=== PATIENT | female | born 1980 | race Asian ===

== ENCOUNTER 2019-07-27 03:16 | Emergency (ER) | payer OTHER ==
[2019-07-27 03:37] LABS: BASOPHILS % (AUTO) 0.5 %; EOSINOPHILS # (AUTO) 0.1 10^3/uL (0.0-0.7); EOSINOPHILS % (AUTO) 1.1 %; HGB - HEMOGLOBIN 13.1 g/dL (12.0-16.0); LYMPHOCYTES # (AUTO) 2.5 10^3/uL (1.5-3.5); LYMPHOCYTES % (AUTO) 41.4 %; MEAN CORPUSCULAR HEMOGLOBIN 29.5 pg (27.0-31.0); MEAN CORPUSCULAR HGB CONC 33.2 g/dL (32.0-36.0); MEAN CORPUSCULAR VOLUME 88.7 fL (81.0-99.0); MEAN PLATELET VOLUME 10.1 fL (7.9-10.8); MONOCYTES # (AUTO) 0.4 10^3/uL (0.0-1.0); MONOCYTES % (AUTO) 7.1 %; NEUTROPHILS % (AUTO) 49.6 %; PLT - PLATELET COUNT 267 10^3/uL (130-450); RED BLOOD COUNT 4.44 10^6/uL (4.20-5.40); RED CELL DISTRIBUTION WIDTH 12.6 % (12.0-15.0); WHITE BLOOD COUNT 6.1 x10^3/uL (4.8-10.8)
[2019-07-27 03:50] LABS: ALBUMIN 4.5 g/dL (3.2-5.5); ALBUMIN/GLOBULIN RATIO 1.5 (1.0-2.2); BILIRUBIN,TOTAL 0.5 mg/dL (0.2-1.0); CREATININE 0.7 mg/dL (0.4-1.0); TOTAL PROTEIN 7.6 g/dL (6.7-8.2)
--- NOTE | 2019-07-27 04:04 | XRAY Report ---
Reason: chest pain Procedure Date: 07/27/2019 Accession Number: [id number] / [id number] Procedure: XR - Chest 2 View X-Ray CPT Code: 89408 Final Report FULL RESULT: EXAM: CHEST RADIOGRAPHY EXAM DATE: 07/27/2019 03:50 AM. CLINICAL HISTORY: Chest pain. COMPARISON: None. TECHNIQUE: 2 views. FINDINGS: The mediastinal and cardiac silhouettes are normal. The lungs are clear. No pleural effusion or pneumothorax is seen. The osseous structures are intact. IMPRESSION: Clear lungs. RADIA
--- NOTE | 2019-07-27 04:10 | ED Physician Documentation ---
PD HPI CHEST PAIN - Stated complaint Stated Complaint: CHEST TIGHT/RHR - Chief complaint Chief Complaint: Cardiac - History obtained from History obtained from: Patient - Additional information Additional information: Patient comes emergency department complaining of left scapular pain radiating through to her left chest that started approximately 2 hours ago. Patient states she was just getting ready to go to bed when she noticed a sharp pain in her scapula.She states that it shot through to her chest and made her catch her breath. She also felt a numb tingly feeling going down her left arm and states her palm was sweaty. She woke her because she was concerned about it. Patient states it felt as though her heart was pounding at that time. Patient denies any associated nausea or vomiting. She states that she felt somewhat anxious, but otherwise not short of breath. She states that she does not have any lightheadedness or dizziness at the time, either. Patient states that does not seem there is anything that makes the pain better or worse. She has never had this pain before. Patient states she is otherwise healthy. She has no history of diabetes or hypertension. She is not a smoker. No family history of coronary artery disease at a young age. No family history of DVT. Patient herself does not have any History of DVT or coronary artery disease. She states her legs have not been swelling recently. No recent immobilization. She denies any cough or fever. She states that her pain is a little better now than it initially was. No other complaints at this time. Review of Systems Ten Systems: 10 systems reviewed and negative Constitutional: reports: Reviewed and negative Eyes: reports: Reviewed and negative Ears: reports: Reviewed and negative Nose: reports: Reviewed and negative Throat: reports: Reviewed and negative Cardiac: reports: Chest pain / pressure, Palpitations Respiratory: reports: Reviewed and negative GI: reports: Reviewed and negative : reports: Reviewed and negative Skin: reports: Reviewed and negative Musculoskeletal: reports: Reviewed and negative Neurologic: reports: Numbness Psychiatric: reports: Reviewed and negative Endocrine: reports: Reviewed and negative Immunocompromised: reports: Reviewed and negative PD PAST MEDICAL HISTORY - Past Medical History Past Medical History: No - Past Surgical History 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 - Present Medications Home Medications: Ambulatory Orders Medication Instructions Recorded Confirmed Multivitamin [Multiple Vitamins] 1 tab PO DAILY 07/27/19 07/27/19 - Allergies Allergies/Adverse Reactions: Allergies Allergy/AdvReac Type Severity Reaction Status Date / Time No Known Drug Allergies Allergy Verified 07/27/19 03:26 - Social History Does the pt smoke?: No Smoking Status: Never smoker Does the pt drink ETOH?: No Does the pt have substance abuse?: No - Immunizations Immunizations are current?: Yes - POLST Patient has POLST: No PD ED PE NORMAL - Vitals Vital signs reviewed: Yes - General General: Alert and oriented X 3, No acute distress, Well developed/nourished - HEENT HEENT: Atraumatic, PERRL, EOMI, Moist mucous membranes - Neck Neck: Supple, no meningeal sign - Cardiac Cardiac: RRR, No murmur - Respiratory Respiratory: No respiratory distress, Clear bilaterally - Abdomen Abdomen: Soft, Non tender, Non distended - Back Back: Other (Patient has mild tenderness palpation of the intrascapular musculature, especially on the left. This does not reproduce the pain she is having.) - Derm Derm: Normal color, Warm and dry, No rash - Extremities Extremities: No deformity, No tenderness to palpate, Normal ROM s pain, No edema, No calf tenderness / cord - Neuro Neuro: Alert and oriented X 3, chief digital officer 2-12 intact, No motor deficit, No sensory deficit, Normal speech - Psych Psych: Normal mood, Normal affect Results - Vitals Vitals: Vital Signs - 24 hr 07/27/19 07/27/19 07/27/19 03:20 03:47 04:20 Temperature 36.9 C Heart Rate 74 65 58 L Respiratory 20 19 18 Rate Blood Pressure 143/96 H 131/106 H 112/95 H Blood Pressure 134/92 H [Left] Blood Pressure 143/96 H [Right] O2 Saturation 100 100 98 07/27/19 05:30 Temperature 36.7 C Heart Rate 69 Respiratory 18 Rate Blood Pressure 127/93 H Blood Pressure [Left] Blood Pressure [Right] O2 Saturation 98 Oxygen O2 Source Room air - EKG (time done) 0330 Rate: Rate (enter#) (66) Rhythm: NSR [place]: Normal Intervals: Normal OK QRS: Normal Ischemia: Normal ST segments Compare to prior EKG: Unchanged from prior EKG Computer interpretation: Agree with computer - Labs Labs: Laboratory Tests 07/27/19 07/27/19 07/27/19 03:30 03:30 03:30 WBC 6.1 RBC 4.44 Hgb 13.1 Hct 39.4 MCV 88.7 MCH 29.5 MCHC 33.2 RDW 12.6 Plt Count 267 MPV 10.1 Neut # (Auto) 3.0 Lymph # (Auto) 2.5 Redwood # (Auto) 0.4 Eos # (Auto) 0.1 Baso # (Auto) 0.0 Absolute Nucleated RBC 0.00 Nucleated RBC % 0.0 D-Dimer Sodium 137 Potassium 3.5 Chloride 106 Carbon Dioxide 23 Anion Gap 8.0 BUN 14 Creatinine 0.7 Estimated GFR (MDRD) 94 Glucose 107 H Calcium 9.0 Total Bilirubin 0.5 AST 23 ALT 15 Alkaline Phosphatase 46 Troponin I High Sens 2.6 Total Protein 7.6 Albumin 4.5 Globulin 3.1 Albumin/Globulin Ratio 1.5 Lipase 28 07/27/19 03:30 WBC RBC Hgb Hct MCV MCH MCHC RDW Plt Count MPV Neut # (Auto) Lymph # (Auto) Redwood # (Auto) Eos # (Auto) Baso # (Auto) Absolute Nucleated RBC Nucleated RBC % D-Dimer < 200.0 L Sodium Potassium Chloride Carbon Dioxide Anion Gap BUN Creatinine Estimated GFR (MDRD) Glucose Calcium Total Bilirubin AST ALT Alkaline Phosphatase Troponin I High Sens Total Protein Albumin Globulin Albumin/Globulin Ratio Lipase - Rads (name of study) chest xray Radiology: Final report received, EMP read indepedently, See rad report PD MEDICAL DECISION MAKING - ED course Complexity details: reviewed results, re-evaluated patient, considered differential, d/w patient, d/w family ED course: Patient was worked up for her chest pain with labs, EKG, and chest x-ray, all which were unremarkable.Her heart rate was normal in the emergency department, as was her rhythm. Her diastolic blood pressure was slightly elevated. Departure - Departure Disposition: 01 Home, Self Care Clinical Impression: Chest pain Condition: Good Instructions: ED Chest Pain NonCardiac Comments: Your labs, EKG, and chest x-ray all look very good. There is no evidence of a heart attack, blood clot, aneurysm, pneumothorax, pneumonia, or any other emergent cause of your chest pain. The pain may be due to a pinched nerve or muscle spasm throughout the muscles that control your shoulder, both in front and back. This could cause both the pain in the back/Shoulder blade that you have been feeling, as well as in the front, and could also cause the numbness/ti ngling going down your left arm.No emergent cause of the pain is been found. Additionally, you were extremely low risk for heart attack andDo not have any identifiable risk factors for blood clot, either. You may take ibuprofen and Tylenol, as needed for the pain. Please follow-up with your primary care physician to have your blood pressure rechecked in a less stressful setting. Discharge Date/Time: 07/27/19 05:35
[2019-07-27] MEDS ORDERED: KETOROLAC 30 MG/ML VIAL IVP STA (04:14)
[2019-07-27 05:35] VITALS: BP 127/93
== END 2019-07-27 05:35 | disposition home or self-care (01) ==
LOC: ED 03:16
DX: R07.9 Chest pain, unspecified (principal); M25.512 Pain in left shoulder; R03.0 Elevated blood-pressure reading, without diagnosis of hypertension
CPT/HCPCS: 36415; 71046; 80053; 83690; 84484; 85025; 85379; 93005; 96374; 99284

== ENCOUNTER 2021-06-07 07:13 | Emergency (ER) | payer OTHER ==
[2021-06-07 07:22] VITALS: BP 142/91
[2021-06-07] MEDS ORDERED: DEXAMETHASONE 10 MG/ML VIAL PO STA (08:14)
[2021-06-07] MEDS ORDERED: CHERRY SYRUP 10 ML UDC PO ONE (08:14)
--- NOTE | 2021-06-07 08:16 | ED Physician Documentation ---
PD HPI HEADACHE - Stated complaint Stated Complaint: [place] HEAD PX/LUMPS - Chief complaint Chief Complaint: Heent - History obtained from History obtained from: Patient - History of Present Illness Timing - onset: How many days ago (3) Timing - onset during: Rest Timing - duration: Days (3) Timing - details: Gradual onset, Still present Location: Front, Right Quality: Throbbing, Stabbing Associated symptoms: No: Fever, Stiff neck, Nausea, Vomiting, Weakness, Numbness, Syncope, Seizure, Eye pain, Vision changes Improved by: Rest Contributing factors: No: Anticoagulated Similar symptoms before: Has not had sx before Recently seen: Not recently seen - Additional information Additional information: Previously well 40-year-old female has developed a headache on the right side of her head she has some redness with swelling that involves the right side of her scalp. She is having some intense stabbing pains periodically. She does have some stress and that her 20-year-old son is now leaving for college. 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 - Present Medications Home Medications: Ambulatory Orders Medication Instructions Recorded Confirmed Multivitamin [Multiple Vitamins] 1 tab PO DAILY 07/27/19 07/27/19 Valacyclovir HCl [Valtrex] 1,000 mg PO TID #21 tablet 06/07/21 - Allergies Allergies/Adverse Reactions: Allergies Allergy/AdvReac Type Severity Reaction Status Date / Time No Known Drug Allergies Allergy Verified 06/07/21 07:24 - Social History Does the pt smoke?: No Smoking Status: Never smoker Does the pt drink ETOH?: No Does the pt have substance abuse?: No - Immunizations Immunizations are current?: Yes - POLST Patient has POLST: No PD ED PE NORMAL - Vitals Vital signs reviewed: Yes (Hypertensive) - General General: Alert and oriented X 3, Well developed/nourished, Other (Obvious swelling to the right periorbital tissues with erythematous plaques consistent with shingles) - HEENT HEENT: PERRL, EOMI - Neck Neck: Supple, no meningeal sign, No bony TTP - Cardiac Cardiac: RRR, No murmur - Respiratory Respiratory: No respiratory distress, Clear bilaterally - Abdomen Abdomen: Soft, Non tender - Back Back: No CVA TTP, No spinal TTP - Derm Derm: Normal color, Warm and dry, Other (There is a rash to the scalp and right side of the face terminating at the upper eyelid. Consistent with a nerve distribution and shingles) - Extremities Extremities: No deformity, No edema - Neuro Neuro: Alert and oriented X 3, chief enterprise architect 2-12 intact, No motor deficit, No sensory deficit, Normal speech Eye Opening: Spontaneous Motor: Obeys Commands Verbal: Oriented GCS Score: 15 - Psych Psych: Normal mood, Normal affect Results - Vitals Vitals: Vital Signs - 24 hr 06/07/21 07:18 Temperature 36.4 C L Heart Rate 81 Respiratory 15 Rate Blood Pressure 142/91 H O2 Saturation 99 Oxygen O2 Source Room air PD MEDICAL DECISION MAKING - ED course Complexity details: considered differential, d/w patient ED course: 40-year-old female with shingles has significant amount of swelling associated with this she does appear to be in pain we will start her on valacyclovir and I have given her a single dose of dexamethasone. Departure - Departure Disposition: 01 Home, Self Care Clinical Impression: Shingles Qualifiers: Herpes zoster complications: without complications Qualified Code(s): B02.9 - Zoster without complications Condition: Stable Instructions: ED Shingles Follow-Up: [facility] [Provider Group] Prescriptions: Valacyclovir HCl [Valtrex] 1,000 mg PO TID #21 tablet Comments: Alisha, Today it looks like you have shingles on your forehead. This is reactivation of the chickenpox virus and will likely cause some nerve pain. The recommendation is to take the valacyclovir 3 times a day for 1 week. Expectation is that you will have a reduction in your symptoms day by day and likely have resolution by the end of the week.Medication has been E scribed to [facility] in [place]
== END 2021-06-07 08:36 | disposition home or self-care (01) ==
LOC: ED 07:13
DX: B02.9 Zoster without complications (principal)
CPT/HCPCS: 99282; 99283; A9270

== ENCOUNTER 2022-05-25 07:26 | Emergency (ER) | payer OTHER ==
--- NOTE | 2022-05-25 07:56 | ED Physician Documentation ---
PD HPI NECK PAIN - Stated complaint Stated Complaint: NECK/LT SHOULDER PX - Chief complaint Chief Complaint: General - History obtained from History obtained from: Patient - History of Present Illness Timing - onset: How many days ago (5) Timing - duration: Days (5) Timing - details: Abrupt onset (awoke from sleep with pain left lateral neck and to scapular area. worse with head/neck movement. Has persisted despite some massage, heat, Ibuprofen and guarded use. No rash nor sores. No weakness nor numbness down arm.), Still present Location: Mid, Lower, Left Quality: Pain, Spasm. No: Tearing Associated symptoms: No: Fever, Weakness, Numbness Improves with: Rest Worsened by: Movement, Palpation Contributing factors: No: Trauma Similar symptoms before: Has not had sx before Review of Systems Constitutional: denies: Fever, Chills Nose: denies: Rhinorrhea / runny nose, Congestion Throat: denies: Sore throat Cardiac: denies: Chest pain / pressure Respiratory: denies: Cough Skin: denies: Rash, Lesions Musculoskeletal: reports: Neck pain. 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 - Present Medications Home Medications: Ambulatory Orders Medication Instructions Recorded Confirmed Multivitamin [Multiple Vitamins] 1 tab PO DAILY 07/27/19 07/27/19 Valacyclovir HCl [Valtrex] 1,000 mg PO TID #21 tablet 06/07/21 HYDROcod/ACETAM 5/325 [Orange 5/325] 1 ea PO Q6H PRN #18 tablet 05/25/22 Meloxicam [Mobic] 7.5 mg PO BID 10 Days #20 tablet 05/25/22 tiZANidine [Zanaflex] 4 mg PO Q8H PRN #20 tablet 05/25/22 - Allergies Allergies/Adverse Reactions: Allergies Allergy/AdvReac Type Severity Reaction Status Date / Time No Known Drug Allergies Allergy Verified 05/25/22 07:38 - Social History Does the pt smoke?: No Smoking Status: Never smoker Does the pt drink ETOH?: No Does the pt have substance abuse?: No - Immunizations Immunizations are current?: Yes - POLST Patient has POLST: No PD ED PE NORMAL - Vitals Vital signs reviewed: Yes - General General: Alert and oriented X 3, Well developed/nourished, Other (seems in pain with roM of the neck/head, mainly turning to left and upward. Tender to palpation in left trapezius muscle area neck to suprascapular area, but also some in posterior belly SCM muscle. ) - Neck Neck: No bony TTP, No adenopathy - Derm Derm: Normal color, Warm and dry, No rash - Neuro Neuro: Alert and oriented X 3, No motor deficit, No sensory deficit, Normal speech Results - Vitals Vitals: Vital Signs - 24 hr 05/25/22 05/25/22 07:36 09:31 Temperature 37.0 C Heart Rate 76 67 Respiratory 20 16 Rate Blood Pressure 141/100 H 123/80 O2 Saturation 97 98 Oxygen O2 Source Room air PD Medical Decision Making - ED course Complexity details: considered differential (muscular area tenderness left neck trapezius and scm areas. No red flags regarding history nor exam. Will treat as muscle strain. Has not had URI. ), d/w patient Departure - Departure Disposition: Home, Self Care Clinical Impression: Strain of left trapezius muscle Qualifiers: Encounter type: initial encounter Qualified Code(s): S46.812A - Strain of other muscles, fascia and tendons at shoulder and upper arm level, left arm, initial encounter Condition: Stable Record reviewed to determine appropriate education?: Yes Instructions: ED Sprain Strain Neck Follow-Up: [facility] [Provider Group] Prescriptions: Meloxicam [Mobic] 7.5 mg PO BID 10 Days #20 tablet HYDROcod/ACETAM 5/325 [Orange 5/325] 1 ea PO Q6H PRN #18 tablet PRN Reason: Pain tiZANidine [Zanaflex] 4 mg PO Q8H PRN #20 tablet PRN Reason: Spasms Comments: This does seem like a muscle spasm and irritation/inflammation. Unclear the cause of it but at this point there are not any concerning factors (red flags) that would suggest need for further testing or imaging at this point. Typically will treat this with combination of the light massage, heat and range of motion as well as any topical treatments like the Salonpas. These are all good. Would add to it a different anti-inflammatory since the ibuprofen is not helping much. I prescribed meloxicam twice daily for the next 10 days. Take it with food. We can also add a muscle relaxant tizanidine to help with spasms and stiffness. To that add Tylenol every 4-6 hours if needed for pain or hydrocodone/acetaminophen if needed for worse pain. Episodic pain and spasms of the neck and low back are relatively common and can last sometimes for several weeks. Follow-up with your primary care if not improved well over the next several days and resolved by 4 to 5 days. Follow-up sooner if other symptoms develop such as weakness in the arm, fevers, rash, new areas hurting etc. I sent your prescriptions to [facility] pharmacy in [place]. I am prescribing a short course of narcotic pain medication for you. These are potentially dangerous and addictive medications that should be used carefully. These medications may constipate you. Take an [id number] stool softener such as docusate twice daily with plenty of water while taking these medi cations. If you go 24 hours without a bowel movement, take [id number] MiraLAX, per package instructions. Do not drink or drive while taking these medications. If you received narcotic or sedating medications while in the emergency department do not drive for 24 hours. Store this medication in a safe, secure place and out of reach of children. It is a violation of federal law to give or sell this medication to another person or to use in a manner other than prescribed. The ED will not refill narcotic prescriptions, including prescriptions lost or stolen. You can dispose of unwanted medications at the [facility]'s office or at several pharmacies such as [facility]. Discharge Date/Time: 05/25/22 09:32
[2022-05-25] MEDS ORDERED: KETOROLAC 30 MG/ML VIAL IM STA (08:08)
[2022-05-25] MEDS ORDERED: HYDROmorphone 1 MG/ML CARPUJECT IM STA (08:09)
[2022-05-25] MEDS ORDERED: CHERRY SYRUP 10 ML UDC PO ONE (08:09)
[2022-05-25] MEDS ORDERED: DEXAMETHASONE 10 MG/ML VIAL PO STA (08:09)
[2022-05-25 09:33] VITALS: BP 123/80
== END 2022-05-25 09:32 | disposition home or self-care (01) ==
LOC: ED 07:26
DX: S46.812A Strain of other muscles, fascia and tendons at shoulder and upper arm level, left arm, initial encounter (principal); X58.XXXA Exposure to other specified factors, initial encounter
CPT/HCPCS: 96372; 99283; A9270; J1170